=== PATIENT | female | born 1955 | race Caucasian/White ===

== ENCOUNTER 2021-06-07 10:27 | Emergency (ER) | payer MEDICARE ==
[2021-06-07 11:01] LABS: BASOPHIL 0.4 % (0-2); HCT 26.3 % (37.0-47.0); HGB 7.7 g/dl (12.5-16.0); LYMPHOCYTE 13.7 % (15-48); MCH 28.2 pg (25.0-31.0); MCHC 29.3 g/dL (32.0-36.0); MCV 96.3 fL (78.0-100.0); MONOCYTE 7.5 % (0-12); MPV 9.4 fL (6.0-9.5); NEUTROPHIL 74.8 % (41-80); NRBC 0; PLT 353 K/uL (150-400); RBC 2.73 M/uL (4.20-5.40); RDW 22.5 % (11.5-14.0); WBC 9.3 K/uL (4.0-10.5)
[2021-06-07 11:24] LABS: ALBUMIN 2.1 g/dL (3.4-5.0); BILIRUBIN - TOTAL 0.2 mg/dL (0.2-1.0); BUN/CREAT RATIO (CALC) 15.3 RATIO; CREATININE 0.59 mg/dL (0.51-0.95); GLOBULIN (CALCULATION) 3.7 g/dL; TOTAL PROTEIN 5.8 g/dL (6.4-8.2)
== END 2021-06-07 13:55 | disposition home or self-care (01) ==
LOC: FER 10:27
PROVIDERS: Emergency Medicine
DX: D64.9 Anemia, unspecified (principal)
CPT/HCPCS: 36415; 80053; 85025; 86850; 86900; 86901; 99284